=== PATIENT | male | born 1995 | race Two or more races ===

== ENCOUNTER 2020-03-03 20:27 | Emergency (ER) | payer SELFPAY ==
[~2020-03-03] VITALS: Ht 177.8 cm; Wt 73.9 kg
[2020-03-03] MEDS ORDERED: cefTRIAXone SOD 1,000 MG VL IM ONE (22:00)
[2020-03-03] MEDS ORDERED: ONDANSETRON ODT 4 MG TAB PO ONE (22:00)
[2020-03-03] MEDS ORDERED: ACETAMINOPHEN/CODEINE#3 (300/30mg) TAB PO ONE (22:00)
[2020-03-03 22:10] VITALS: BP 142/84
[2020-03-03] MEDS ORDERED: BACITRACIN INJ 50000 UNIT VIAL TOP ONE (23:15)
[2020-03-03] MEDS ORDERED: BACITRACIN TOP OINT 1 UD PKG TOP ONE (23:30)
== END 2020-03-03 23:44 | disposition home or self-care (01) ==
LOC: ER 20:30
DX: S46.221A Laceration of muscle, fascia and tendon of other parts of biceps, right arm, initial encounter (principal); W18.09XA Striking against other object with subsequent fall, initial encounter; Y93.01 Activity, walking, marching and hiking; Y92.89 Other specified places as the place of occurrence of the external cause; Y99.8 Other external cause status
CPT/HCPCS: 12034; 73060; 96372; 99284; J0696; Q0162